=== PATIENT | female | born 1995 | race Caucasian/White ===

== ENCOUNTER 2018-01-26 10:25 | Emergency (ER) | payer BC, SELFPAY ==
[2018-01-26 10:39] VITALS: BP 117/82; PULSE 86; RESP 18; TEMP 36.8; O2SAT 99; BMI 32.5
--- NOTE | 2018-01-26 10:46 | HMH.EDUTC ---
[facility] – [place] Disposition Clinical Impression: Allergic urticaria Disposition: Home, Self-Care Condition on Discharge: Good Instructions: DI for Hives, Hives, Urticaria (Alternative Therapy) Additional Instructions: Take Benadryl over the counter for itching Follow up with Dermatology tomorrow as advised If rash worsens or began to have swelling in the mouth or tongue straight to ER Follow up with family doctor if needed REturn if needed Follow up with family doctor in 24-48 hours if no improvement or worsening fo symptoms Prescriptions: predniSONE [Prednisone 5mg Tab Dose-Pack] 5 mg PO UD DOSE PK #21 pack Referrals: Provider,Referral, [Primary Care Provider] - Gurmeet Carranza [Other] Forms: Work/School Release Time of Disposition: 11:00 Medical Decision Making - Medical Records Medical records reviewed: Yes: I reviewed the patient's medical records. - Osmany Inquiry Pt receiving controlled substance: No Osmany was queried for this patient: No Vital Signs: 01/26/18 10:39 Temperature 98.2 F Temperature Source Oral Pulse Rate [Right Radial] 86 Respiratory Rate 18 Blood Pressure [Right Arm] 117/82 Blood Pressure Mean [Right Arm] 93 02 Sat by Pulse Oximetry 99 Oxygen Delivery Method Room Air [facility] [place] HPI - General Stated complaint: rash on face Time Seen by Provider: 01/26/18 10:46 Mode of Arrival: Family Vehicle Source of Information: Patient Limitations: No Limitations Description of Symptoms (Recalled from Triage Doc. by RN): pt c/o rash on face with swelling,itching,buring. pt states she has taken bendryl and it is not helping . HEENT Symptoms (Recalled from RN notes): No Resp Symptoms (Recalled from RN notes): No Skin Symptoms (Recalled from RN notes): Yes (rash on face) MS Symptoms (Recalled from RN notes): No Functional Status (Recalled from RN notes): na - History of Present Illness Provider Complaint: Patient state that she noticed last night that she was having a rash on her face. State that rash is around her eyes, on her nose, forehead and ears State that it started last night and it was itchy and when she scratched it it would burn State that she took a benadryl but it didn't help and this morning she woke up and noticed that it was starting on her neck too States that she hasnt changed anything but did wear sunglasses yesterday and the rash appears to follow where the sunglasses was - Related Data Home Medications Medication Instructions Recorded Confirmed Norethindrone-E.estradiol-Iron 1 each PO DAILY 01/26/18 01/26/18 [Minastrin 24 Fe Chewable Tab] Previous Rx's Medication Instructions Recorded predniSONE [Prednisone 5mg Tab 5 mg PO UD DOSE PK #21 pack 01/26/18 Dose-Pack] Allergies Allergy/AdvReac Type Severity Reaction Status Date / Time No Known Allergies Allergy Verified 01/26/18 10:46 - Worker's Comp Is this a Worker's Comp case?: No [facility] History I have reviewed the patient's past medical history: Yes Medical History: Denies:: Cancer, Diabetes Mellitus Type 1, Diabetes Mellitus Type 2, MRSA Laterality Cases: Left: ACL Repair Amputation: No Fractures: No - Social History Smoking Status: Never smoker Alcohol Intake: never - Psychiatric History Expresses thoughts of harming self/others: None Suicide Plan Description: No Plan ROS Obtained: Yes All systems reviewed & no additional complaints - Allergic/Immunologic Allergic/Immunologic: Reports itchy eyes, Denies lip swelling, Denies throat swelling, Denies tongue swelling, Reports hives, Denies wheezing Physical Exam - General General appearance: alert, in no apparent distress - Eye Eye exam: Present: normal appearance, PERRL, EOMI - Respiratory Respiratory exam: Present: normal lung sounds bilaterally. Absent: respiratory distress - Cardiovascular Cardiovascular exam: Present: regular rate - Neurological Exam Neurological exam: Present: alert, oriented X3 - Skin Skin exam: P
--- NOTE | 2018-01-26 10:50 | ED_ITS ---
[facility] [place] Disposition Clinical Impression: Allergic urticaria Disposition: Home, Self-Care Condition on Discharge: Good Instructions: DI for Hives, Hives, Urticaria (Alternative Therapy) Additional Instructions: Take Benadryl over the counter for itching Follow up with Dermatology tomorrow as advised If rash worsens or began to have swelling in the mouth or tongue straight to ER Follow up with family doctor if needed REturn if needed Follow up with family doctor in 24-48 hours if no improvement or worsening fo symptoms Prescriptions: predniSONE [Prednisone 5mg Tab Dose-Pack] 5 mg PO UD DOSE PK #21 pack Referrals: Provider,Referral, [Primary Care Provider] - Gurmeet Carranza [Other] Forms: Work/School Release Time of Disposition: 11:00 Medical Decision Making - Medical Records Medical records reviewed: Yes: I reviewed the patient's medical records. - Osmany Inquiry Pt receiving controlled substance: No Osmany was queried for this patient: No Vital Signs: 01/26/18 10:39 Temperature 98.2 F Temperature Source Oral Pulse Rate [Right Radial] 86 Respiratory Rate 18 Blood Pressure [Right Arm] 117/82 Blood Pressure Mean [Right Arm] 93 02 Sat by Pulse Oximetry 99 Oxygen Delivery Method Room Air [facility] [place] HPI - General Stated complaint: rash on face Time Seen by Provider: 01/26/18 10:46 Mode of Arrival: Family Vehicle Source of Information: Patient Limitations: No Limitations Description of Symptoms (Recalled from Triage Doc. by RN): pt c/o rash on face with swelling,itching,buring. pt states she has taken bendryl and it is not helping . HEENT Symptoms (Recalled from RN notes): No Resp Symptoms (Recalled from RN notes): No Skin Symptoms (Recalled from RN notes): Yes (rash on face) MS Symptoms (Recalled from RN notes): No Functional Status (Recalled from RN notes): na - History of Present Illness Provider Complaint: Patient state that she noticed last night that she was having a rash on her face. State that rash is around her eyes, on her nose, forehead and ears State that it started last night and it was itchy and when she scratched it it would burn State that she took a benadryl but it didn't help and this morning she woke up and noticed that it was starting on her neck too States that she hasnt changed anything but did wear sunglasses yesterday and the rash appears to follow where the sunglasses was - Related Data Home Medications Medication Instructions Recorded Confirmed Norethindrone-E.estradiol-Iron 1 each PO DAILY 01/26/18 01/26/18 [Minastrin 24 Fe Chewable Tab] Previous Rx's Medication Instructions Recorded predniSONE [Prednisone 5mg Tab 5 mg PO UD DOSE PK #21 pack 01/26/18 Dose-Pack] Allergies Allergy/AdvReac Type Severity Reaction Status Date / Time No Known Allergies Allergy Verified 01/26/18 10:46 - Worker's Comp Is this a Worker's Comp case?: No [facility] History I have reviewed the patient's past medical history: Yes Medical History: Denies:: Cancer, Diabetes Mellitus Type 1, Diabetes Mellitus Type 2, MRSA Laterality Cases: Left: ACL Repair Amputation: No Fractures: No - Social History Smoking Status: Never smoker Alcohol Intake: never - Psychiatric History Expresses thoughts of harming self/others: None Suicide Plan Description: No Plan ROS Obtained: Yes All s
[2018-01-26 10:57] LABS: UTC Pregnancy Test, Urine Negative (Negative)
[2018-01-26 11:17] VITALS: BP 116/72; PULSE 86; RESP 18; TEMP 36.9; O2SAT 99
== END 2018-01-26 11:17 | disposition home or self-care (01) ==
PROVIDERS: Emergency Provider Nurse Practitioner
DX: L50.0 Allergic urticaria (principal)
CPT/HCPCS: 81025; 99201

== ENCOUNTER → 2018-03-04 20:09 | Outpatient (CLI) | payer BC, SELFPAY | PROVIDERS: PCP Nurse Practitioner; Visit Provider Nurse Practitioner | DX: R00.2 Palpitations (principal); R42 Dizziness and giddiness; R55 Syncope and collapse | CPT/HCPCS: 93225; 93226 ==

== ENCOUNTER → 2018-06-27 13:11 | Outpatient (CLI) | payer BC, SELFPAY ==
--- NOTE | 2018-06-27 13:17 | XR_ITS ---
XR chest 2V HISTORY: ITS.REASON: RALES ORDERING PHYSICIAN: Amina Bauer PATIENT AGE: 23 years Technique: PA and lateral chest. COMPARISON: No prior chest films FINDINGS: Lungs are well expanded and clear with no active disease. Markings upper normal right infrahilar region probably within normal limits. No focal pneumonia. Heart angelica and mediastinal structures satisfactory. The cardiomediastinal silhouette and pulmonary vascularity are within normal limits. The lungs are clear without infiltrates, suspicious nodules, or pleural effusions. No acute bony abnormalities. IMPRESSION:======= Nothing definitely acute. Lungs clear.
== END ==
PROVIDERS: PCP Family Medicine; Visit Provider Nurse Practitioner
DX: R09.89 Other specified symptoms and signs involving the circulatory and respiratory systems (principal)
CPT/HCPCS: 71046

== ENCOUNTER → 2018-07-25 15:14 | Outpatient (CLI) | payer BC, SELFPAY | PROVIDERS: PCP Nurse Practitioner; Visit Provider Nurse Practitioner | DX: R00.2 Palpitations (principal) | CPT/HCPCS: 93005 ==

== ENCOUNTER → 2018-11-26 12:37 | Outpatient (CLI) | payer BC, SELFPAY ==
--- NOTE | 2018-11-26 | CT_ITS ---
CT abdomen pelvis w con CLINICAL INDICATION: Left lower quadrant pain with nausea ITS.REASON: LEFT LOWER QUAD PAIN ORDERING PHYSICIAN: Colin Jacinto MD PATIENT AGE: 23 years COMPARISON: None TECHNIQUE: Axial images obtained with sagittal and coronal reformats. All CT scans at the facility use one or more dose reduction, viz: automated exposure control, ma/kV adjustment per patient size (including targeted exams where dose is matched to indication, i.e. head), or iterative reconstruction technique. PROCEDURE: Oral Contrast: Gastroview IV Contrast: 75 mL's of Isovue 370. FINDINGS: Lung bases are clear. The liver, gallbladder, spleen, adrenal glands, pancreas, and kidneys have an unremarkable appearance. No renal or ureteral calculi. No hydronephrosis. There is a small amount of fluid density at the tip of the cecum. What appear to represent part of the appendix has an unremarkable appearance. No intestinal obstruction or free air is evident. There is a 7.6 x 5.5 cm cystic left adnexal mass and may represent a large ovarian cyst. Small amount fluid is present in the cul-de-sac and in the left adnexal region. No acute bony anomalies. There is a tiny umbilical hernia containing fat IMPRESSION: 1. 7.6 x 5.5 cm cystic left adnexal lesion with ovarian cyst. Suggest pelvic ultrasound for further evaluation. Reticular small amount fluid in cul-de-sac and left adnexa. 3. A small amount fluid is present at the tip of the cecum which appears part of the appendix distally.
== END ==
PROVIDERS: PCP Family Medicine; Visit Provider Family Medicine
DX: R10.32 Left lower quadrant pain (principal)
CPT/HCPCS: 74177; Q9967

== ENCOUNTER → 2019-03-18 16:26 | Outpatient (CLI) | payer BC, SELFPAY | PROVIDERS: PCP Family Medicine; Visit Provider Nurse Practitioner | DX: R55 Syncope and collapse (principal); I47.1 Supraventricular tachycardia | CPT/HCPCS: 93270 ==

== ENCOUNTER → 2020-02-22 14:55 | Outpatient (CLI) | payer BC, SELFPAY ==
--- NOTE | 2020-02-22 15:06 | CA_ITS ---
APPROVED REPORT Left Lower Extremity Venous Study for DVT. Food And Beverage Lead: Diana Fowler RVT Indications Lower Extremity Pain: Lower Extremity Edema: Left POST LT KNEE PAIN, EDEMA Vein Imaging CFV (L): compressive, spontaneous, phasic, augmentation FEM (L): compressive, spontaneous, phasic, augmentation POP (L): compressive, spontaneous, phasic, augmentation PTV (L): Compressible GSV (L): Compressible Peroneals (L):Compressible GAS (L): Compressible Findings Study suggests no evidence of DVT in the left lower extremity. Study suggests no evidence of SVT in the left lower extremity. Conclusion No evidence of DVT or superficial thrombophlebitis in the veins scanned of the left lower extremity. Critical Notification Physician Notified Date: 02/22/2020 Time: 15:32 Physician Name: Dee Dee Bauer Electronically signed by : Buzz Sung MD 02/23/2020 16:02:23
== END ==
PROVIDERS: PCP Nurse Practitioner; Visit Provider Nurse Practitioner
DX: M25.562 Pain in left knee (principal)
CPT/HCPCS: 93971

== ENCOUNTER → 2021-02-15 15:57 | Outpatient (CLI) | payer BC, SELFPAY ==
--- NOTE | 2021-02-15 | CA_ITS ---
APPROVED REPORT Left Lower Extremity Venous Study for DVT. Contract Administration Manager: RADHA Indications Lower Extremity Pain: Left Patient denies trauma. States her left leg popliteal fossa has a knot and pain since 02/11/21. Vein Imaging CFV (L): compressive, spontaneous, phasic, augmentation FEM (L): compressive, spontaneous, phasic, augmentation POP (L): compressive, spontaneous, phasic, augmentation PTV (L): Compressible GSV (L): compressive, spontaneous, phasic, augmentation SSV (L): Compressible Peroneals (L):Compressible GAS (L): Compressible Findings No evidence of DVT or superficial thrombophlebitis in the veins scanned of the left lower extremity. Conclusion No evidence of DVT or superficial thrombophlebitis in the veins scanned of the left lower extremity. Electronically signed by : Buzz Sung MD 02/15/2021 16:35:43
== END ==
PROVIDERS: PCP Nurse Practitioner; Visit Provider Nurse Practitioner
DX: M25.562 Pain in left knee (principal)
CPT/HCPCS: 93971

== ENCOUNTER 2021-02-25 16:50 | Emergency (ER) | payer BC, SELFPAY ==
[2021-02-25 17:10] VITALS: BP 139/91; PULSE 81; RESP 19; TEMP 36.8; O2SAT 98; BMI 32.3
--- NOTE | 2021-02-25 17:53 | HMH.EDUTC ---
[facility] [place] Disposition Clinical Impression: Low back strain Qualifiers: Encounter type: initial encounter Qualified Code(s): S39.012A - Strain of muscle, fascia and tendon of lower back, initial encounter Disposition: Home, Self-Care Condition on Discharge: Good Instructions: Low Back Pain (Alternative Therapy), Cyclobenzaprine, Methylprednisolone Additional Instructions: *Etodolac adan 8 hours with meal as needed for pain/inflammation *Not additional anti-inflammatory like Ibuprofen motrin, aleve, advil with the above amount of Etodolac. You can still take Tylenol every 4 hours as needed if you need something else for pain *Ice 20 minutes every 2 hours for the first 48 hours after the initial injury followed by moist heat every 20 minutes 3-4 times a day to affected area *Muscle relaxer every 8 hours as needed for muscle spasms but remember, it WILL cause drowsiness You cannot take it and drive, operate machinery or care for small children. *Keep this area active, no movement leads to more stiffness, However take it easy and avoid heavy lifting pushing or pulling *Follow up with you family doctor if no improvement for further treatment on Saturday Return if needed Straight to ER if any life threatening symptoms Prescriptions: Etodolac [Etodolac 200mg Cap*] 200 mg PO Q8H PRN #15 cap PRN Reason: Moderate Pain Transmission Status: Received by [facility][id number] Cyclobenzaprine HCl [Flexeril 10mg tablet] 10 mg PO TID PRN #15 tab PRN Reason: Muscle Spasm Transmission Status: Received by [id number] methylPREDNISolone [Medrol 4mg tab] 4 mg PO DIRECTED #21 tab Transmission Status: Received by [facility][id number] Referrals: Amina Bauer APRN [Primary Care Provider] - As needed Time of Disposition: 18:11 Medical Decision Making - Osmany Inquiry Pt receiving controlled substance: No Osmany was queried for this patient: No Vital Signs: 02/25/21 17:10 02/25/21 18:12 Temperature 98.2 F 98.2 F Temperature Source Oral Pulse Rate 81 Pulse Rate [Right Brachial] 81 Respiratory Rate 19 19 Blood Pressure 139/91 H Blood Pressure [Right Arm] 139/91 H Blood Pressure Mean [Right Arm] 107 Blood Pressure Source [Right Arm] Automatic Cuff Blood Pressure Position [Right Arm] Sitting 02 Sat by Pulse Oximetry 98 Oxygen Delivery Method Room Air - Lab Data Lab results reviewed: Yes: I reviewed the patient's lab results. 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 by RN): PATIENT C/O LOW BACK PAIN THAT RADIATES DOWN LEG THAT STARTED THIS MORNING HEENT Symptoms (Recalled from RN notes): No Resp Symptoms (Recalled from RN notes): No Skin Symptoms (Recalled from RN notes): No MS Symptoms (Recalled from RN notes): Yes Functional Status (Recalled from RN notes): WNL - History of Present Illness Provider Complaint: Patient states that she was raising up from lying position earlier today when she felt something pull in her lower back area State that ever since she has been having muscle spasm like p
[2021-02-25 17:59] LABS: Apearance,Urine Clear (Clear); Bilirubin,Urine Negative (Negative); Blood, Urine 1+ (Negative); Color,Urine Yellow (Yellow); Glucose,Urine (UA) Negative (Negative); Ketones,Urine Negative (Negative); Protein,Urine Negative (Negative); UTC Leukocyte Esterase,Urine Negative (Negative); UTC Nitrate,Urine Negative (Negative); UTC Pregnancy Test, Urine Negative (Negative); Urobilinogen,Urine 0.2 EU/dl (0.2)
[2021-02-25 18:12] VITALS: BP 139/91; PULSE 81; RESP 19; TEMP 36.8; O2SAT 98
== END 2021-02-25 18:30 | disposition home or self-care (01) ==
PROVIDERS: Emergency Provider Nurse Practitioner; PCP Nurse Practitioner
DX: S39.012A Strain of muscle, fascia and tendon of lower back, initial encounter (principal); R03.0 Elevated blood-pressure reading, without diagnosis of hypertension
CPT/HCPCS: 81003; 81025; 99202; G0463

== ENCOUNTER → 2021-07-07 15:04 | Outpatient (CLI) | payer BC, SELFPAY ==
[2021-07-07 15:58] LABS: Basophils % 0.5 % (0.1-2.0); Eosinophils % 0.8 % (0.1-12.0); Hematocrit 39.2 % (37.0-47.0); Hemoglobin 12.9 g/dL (12.2-16.2); Lymphocytes # 0.9 K/mm3 (0.7-4.5); Lymphocytes % 26.8 % (10-50); Mean Corpuscular HGB Conc 32.9 g/dL (31.8-35.4); Mean Corpuscular Volume 94.3 fl (81-99); Mean Platelet Volume 8.1 fl (7.4-10.4); Monocytes # 0.4 K/mm3 (0.1-1.0); Neutrophils # 2.1 K/mm3 (1.8-7.8); Neutrophils % 59.9 % (37.0-80.0); Platelet Count 231 K/mm3 (142-424); Red Blood Count 4.16 M/mm3 (4.20-5.40); Red Cell Distribution Width 12.7 % (11.5-17.5); White Blood Count 3.4 K/mm3 (4.8-10.8)
== END ==
PROVIDERS: PCP Nurse Practitioner; Visit Provider Nurse Practitioner
DX: Z11.52 Encounter for screening for COVID-19 (principal); U07.1 COVID-19; J06.9 Acute upper respiratory infection, unspecified
CPT/HCPCS: 36415; 85025; C9803; U0003; U0005

== ENCOUNTER → 2021-07-12 13:45 | Outpatient (CLI) | payer BC, SELFPAY ==
--- NOTE | 2021-07-12 13:49 | XR_ITS ---
PROCEDURE: XR CHEST PORTABLE CLINICAL HISTORY: COVID OUTPATIENT COMPARISON: CR CXR2V XR chest 2V from 06/27/2018 CR CXR2V XR chest 2V from 10/03/2018 FINDINGS: The cardiomediastinal silhouette and pulmonary vascularity are within normal limits. Vague patchy density noted in the right lung base along the hemidiaphragm and could be due to an area of patchy infiltrate. The remaining lungs are clear. No acute bony abnormalities. IMPRESSION: Possible patchy infiltrate in the right lung base Dictated by: Buzz Sung MD 07/12/2021 14:08 Buzz Sung MD in [place] 07/12/2021 14:08
[2021-07-12 14:38] LABS: Basophils % 0.3 % (0.1-2.0); Eosinophils # 0.1 K/mm3 (0.0-0.4); Eosinophils % 1.2 % (0.1-12.0); Hematocrit 37.6 % (37.0-47.0); Hemoglobin 12.2 g/dL (12.2-16.2); Lymphocytes # 1.3 K/mm3 (0.7-4.5); Lymphocytes % 27.7 % (10-50); Mean Corpuscular HGB Conc 32.5 g/dL (31.8-35.4); Mean Corpuscular Hemoglobin 30.3 pg (27.0-31.2); Mean Corpuscular Volume 93.3 fl (81-99); Mean Platelet Volume 7.4 fl (7.4-10.4); Monocytes # 0.3 K/mm3 (0.1-1.0); Neutrophils % 63.9 % (37.0-80.0); Platelet Count 222 K/mm3 (142-424); Red Blood Count 4.03 M/mm3 (4.20-5.40); Red Cell Distribution Width 12.1 % (11.5-17.5); White Blood Count 4.7 K/mm3 (4.8-10.8)
== END ==
PROVIDERS: PCP Nurse Practitioner; Visit Provider Nurse Practitioner
DX: R06.02 Shortness of breath (principal); R06.2 Wheezing
CPT/HCPCS: 36415; 71045; 85025

== ENCOUNTER → 2021-08-04 11:31 | Outpatient (CLI) | payer BC, SELFPAY ==
--- NOTE | 2021-08-04 11:36 | XR_ITS ---
PROCEDURE: XR CHEST 2V CLINICAL HISTORY: SOBOE COMPARISON: CR CXR2V XR chest 2V from 06/27/2018 CR CXR2V XR chest 2V from 10/03/2018 CR XR CHEST PORTABLE from 07/12/2021 FINDINGS: The cardiomediastinal silhouette and pulmonary vascularity are within normal limits. There has been interval almost complete clearing of the ill-defined right lower lobe pneumonic infiltrate seen on the previous study 07/12/2021. The right upper lung field and left lung membreno are clear. There is no pleural fluid. IMPRESSION: Minimal residual infiltrate right lower lobe versus atelectasis otherwise negative chest Dictated by: Dr. Jessee Valdivia MD 08/04/2021 11:55 Dr. Jessee Valdivia MD in [place] 08/04/2021 11:55
== END ==
PROVIDERS: PCP Nurse Practitioner; Visit Provider Nurse Practitioner
DX: R06.02 Shortness of breath (principal)
CPT/HCPCS: 71046

== ENCOUNTER → 2022-05-16 06:48 | Outpatient (CLI) | payer BC, SELFPAY | PROVIDERS: PCP Nurse Practitioner; Visit Provider Nurse Practitioner | DX: R30.0 Dysuria (principal) | CPT/HCPCS: 87086 ==

== ENCOUNTER 2022-09-30 11:59 | Emergency (ER) | payer BC, SELFPAY ==
--- NOTE | 2022-09-30 12:15 | EXP.UTC ---
Discharge Plan Disposition Patient Disposition: Home, Self-Care Condition: Good Prescriptions Prescriptions: New oseltamivir [Tamiflu] 75 mg capsule 75 mg PO BID Qty: 10 0RF No Action cefdinir 300 mg capsule 300 mg PO BID Qty: 14 0RF metformin 750 MG tablet extended release 24 hr 750 mg PO DAILY Referrals Follow up/Referrals: Clark Melo MD [Primary Care Provider] - See instructions Activity Restrictions/Add. Instructions Additional Instructions/Restrictions: Drink plenty of fluids. Take tylenol or ibuprofen for pain or fever. Take the medications as directed. Follow up with your regular doctor. GO TO THE ER FOR ANY WORSENING SYMPTOMS Let your production expert know that you have influenza A. Clinical Impressions Clinical Impression: Influenza A, Stand Alone Forms Stand Alone Forms: Work/School Release Instructions Patient Instructions: DI for Influenza -- Adult, Oseltamivir Discharge ED Provider: Sebastian Villegas [facility] General Stated complaint: aches cough headache Time Seen by Provider: 09/30/22 12:15 History of Present Illness Provider Complaint: She states that for the past 2 days she has had a fever, chills, body aches, and a cough. She is currently . 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 Related Data Home Medications Medication Instructions Recorded Confirmed metformin 750 mg tablet,extended 750 mg PO DAILY PCOS 02/25/21 05/15/22 release 24 hr Previous Rx's Medication Instructions Recorded cefdinir 300 mg capsule 300 mg PO BID #14 caps 05/17/22 oseltamivir 75 mg capsule (Tamiflu) 75 mg PO BID #10 caps 09/30/22 Allergies Allergy/AdvReac Type Severity Reaction Status Date / Time vancomycin Allergy Verified 09/30/22 12:27 [facility] Disclaimer: The information contained in this section may have been updated after the patient was seen, as this information can be updated by other users. Social History Smoking Status: Never smoker alcohol intake: never substance use type: denies use current occupational status: other Travel in the last 8 weeks: None household members: family housing: house ROS Obtained: Yes All systems reviewed & no additional complaints except as documented Constitutional Constitutional: Reports chills and Reports fever(s) Eyes Eyes: Denies eye discharge ENT Ears, Nose, Mouth, and Throat: Reports as per HPI Cardiovascular Cardiovascular: Denies chest pain Respiratory Respiratory: Denies chest congestion and Reports cough Gastrointestinal Gastrointestingal: Reports nausea; Denies abdominal pain, constipation, cramping, diarrhea or vomiting Musculoskeletal Musculoskeletal: Denies arthralgias Integumentary/Breasts Skin/Breast: Denies rash Neurologic Neurologic: Denies paresthesias Physical Exam General General appearance: alert and in no apparent distress Head Head exam: atraumatic, normocephalic and normal inspection Eye Eye exam: Present normal appearance, PERRL and EOMI ENT ENT exam: Present mucous membranes moist and normal external ear exam Expanded ENT Exam TM/Canal exam: Bilateral TM: erythema and bulging Nose exam: Absent sinus tenderness Mouth exam: Present normal external inspection; Absent drooling Teeth exam: Present normal inspection Throat exam: Present tonsillar erythema, tonsillomegaly and tonsillar exudate Neck Neck exam: Present normal inspection, full ROM and trachea midline; Absent tenderness, meningismus or lymphadenopathy Chest Chest inspection: Present normal inspection and symmetric chest wall rise; Absent tenderness Respiratory Respiratory exam: Present normal lung sounds bilaterally; Absent respiratory distress, wheezes or stridor Cardiovascular Cardiovascular exam: Present regular rate and normal rhythm; Absent systolic murmur or diastolic murmur Abdominal Exam Abdominal exam: Present soft and normal bowel
[2022-09-30 12:24] VITALS: BP 114/61; PULSE 99; RESP 16; TEMP 36.6; O2SAT 99; BMI 33.9
[2022-09-30 12:40] LABS: UTC Influenza A Antigen Positive (Negative); UTC Influenza B Antigen Negative (Negative); UTC Strep Screen (Rapid) Negative (Negative)
[2022-09-30 13:31] VITALS: BP 114/61; PULSE 99; RESP 16; TEMP 36.6
== END 2022-09-30 13:36 | disposition home or self-care (01) ==
PROVIDERS: Emergency Provider Nurse Practitioner Family; PCP Family Medicine
DX: O26.899 Other specified pregnancy related conditions, unspecified trimester (principal); J10.1 Influenza due to other identified influenza virus with other respiratory manifestations
CPT/HCPCS: 87804; 87880; 99212; G0463

== ENCOUNTER → 2023-01-02 23:00 | Outpatient (CLI) | payer BC, SELFPAY ==
[2023-01-02 18:29] LABS: Basophils # 0.1 K/mm3 (0-0.2); Basophils % 1.3 % (0.1-2.0); Eosinophils # 0.1 K/mm3 (0.0-0.4); Hematocrit 36.8 % (37.0-47.0); Hemoglobin 11.5 g/dL (12.2-16.2); Lymphocytes # 1.2 K/mm3 (0.7-4.5); Lymphocytes % 30.7 % (10-50); Mean Corpuscular HGB Conc 31.2 g/dL (31.8-35.4); Mean Corpuscular Hemoglobin 25.6 pg (27.0-31.2); Mean Corpuscular Volume 82.2 fl (81-99); Mean Platelet Volume 8.1 fl (7.4-10.4); Monocytes # 0.3 K/mm3 (0.1-1.0); Monocytes % 7.1 % (1.7-9.3); Neutrophils # 2.3 K/mm3 (1.8-7.8); Platelet Count 420 K/mm3 (142-424); Red Blood Count 4.48 M/mm3 (4.20-5.40); White Blood Count 3.9 K/mm3 (4.8-10.8)
== END ==
PROVIDERS: PCP Nurse Practitioner; Visit Provider Nurse Practitioner
DX: D64.9 Anemia, unspecified (principal)
CPT/HCPCS: 85025

== ENCOUNTER → 2023-01-18 19:00 | Outpatient (CLI) | payer BC, SELFPAY | PROVIDERS: PCP Nurse Practitioner; Visit Provider Nurse Practitioner | DX: N30.01 Acute cystitis with hematuria (principal) | CPT/HCPCS: 87086 ==

== ENCOUNTER → 2023-02-25 23:24 | Outpatient (CLI) | payer BC, SELFPAY ==
[2023-02-25 19:22] LABS: Basophils % 0.5 % (0.1-2.0); Eosinophils # 0.3 K/mm3 (0.0-0.4); Eosinophils % 4.2 % (0.1-12.0); Hematocrit 40.2 % (37.0-47.0); Hemoglobin 12.5 g/dL (12.2-16.2); Lymphocytes # 1.9 K/mm3 (0.7-4.5); Lymphocytes % 30.5 % (10-50); Mean Corpuscular HGB Conc 31.1 g/dL (31.8-35.4); Mean Corpuscular Hemoglobin 25.5 pg (27.0-31.2); Mean Corpuscular Volume 82.1 fl (81-99); Mean Platelet Volume 8.3 fl (7.4-10.4); Monocytes # 0.3 K/mm3 (0.1-1.0); Monocytes % 5.4 % (1.7-9.3); Neutrophils # 3.7 K/mm3 (1.8-7.8); Neutrophils % 59.4 % (37.0-80.0); Platelet Count 321 K/mm3 (142-424); Red Cell Distribution Width 17.2 % (11.5-17.5); White Blood Count 6.2 K/mm3 (4.8-10.8)
[2023-02-25 19:42] LABS: Chloride 99 mmol/L (98-107); Potassium 4.3 mmoL/L (3.5-5.1); Sodium 140 mmol/L (136-145)
[2023-02-25 19:45] LABS: Alanine Aminotransferase 24 U/L (12-78); Albumin Level 4.4 g/dl (3.5-5.0); Albumin/Globulin Ratio 1.5 (1.1-1.8); Alkaline Phosphatase 120 U/L (38-126); Anion Gap 21.3 mEq/L (5-15); Aspartate Amino Transferase 26 U/L (14-36); Bilirubin,Total 0.6 mg/dl (0.2-1.3); Blood Urea Nitrogen 19 mg/dl (7-17); Calcium 9.3 mg/dl (8.4-10.2); Carbon Dioxide 24 mmol/L (22.0-30.0); Estimated Glomerular Filt Rate 85 ml/min (>60); GFR (African American) 103 ML/MIN (>60); Globulin 2.9 g/dL (1.3-3.2); Glucose 96 mg/dl (74-100); Total Protein,Serum 7.3 g/dl (6.3-8.2)
[2023-02-25 20:01] LABS: 25-OH Vitamin D, Total 35.2 ng/mL (30-100)
[2023-02-25 20:15] LABS: Thyroid Stimulating Hormone 0.91 uIU/mL (0.465-4.68)
[2023-02-25 20:34] LABS: Vitamin B12 494 pg/mL (239-931)
== END ==
PROVIDERS: PCP Nurse Practitioner; Visit Provider Nurse Practitioner
DX: G43.109 Migraine with aura, not intractable, without status migrainosus (principal); E66.9 Obesity, unspecified; Z68.33 Body mass index [BMI] 33.0-33.9, adult; Z79.899 Other long term (current) drug therapy
CPT/HCPCS: 80053; 82306; 82607; 83036; 84443; 85025

== ENCOUNTER 2023-03-03 17:28 | Emergency (ER) | payer BC, SELFPAY ==
[2023-03-03 19:22] VITALS: PULSE 82; RESP 18; TEMP 36.9; O2SAT 98; BMI 32.3
[2023-03-03 19:33] LABS: UTC Strep Screen (Rapid) Positive (Negative)
--- NOTE | 2023-03-03 19:40 | EXP.UTC ---
Discharge Plan Disposition Patient Disposition: Home, Self-Care Condition: Good Prescriptions Prescriptions: New amoxicillin [amoxicillin] 500 mg tablet 500 mg PO BID 10 Days Qty: 20 0RF No Action norethindrone (contraceptive) 0.35 mg tablet 0.35 mg PO DAILY Label Comments: TAKE 1 TABLET BY MOUTH DAILY. Referrals Follow up/Referrals: Amina Bauer APRN [Primary Care Provider] - See instructions Activity Restrictions/Add. Instructions Additional Instructions/Restrictions: Start antibiotics today be sure to take it as ordered with the full length of time although you should start feeling better in 24-48 hours. Change toothbrush and toothpaste 24-48 hours after starting antibiotics Tylenol or Motrin as needed for fever or pain Encourage fluids, water, Gatorade, Powerade, try cold fluids, popsicles, ice cream will make it feel better You are contagious for 24 hours. Avoid kissing anyone, no eating or drinking after anyone. You are contagious. Follow-up the ER for new or worsening symptoms or no noticeable improvement over the next 24-48 hours. Follow-up with PCP this week. Clinical Impressions Clinical Impression: Strep sore throat Instructions Patient Instructions: DI for Strep Throat Discharge ED Provider: Nafisa ([facility])Wilfrido [facility] HPI General Stated complaint: sore throat,headache,stiff neck Mode of Arrival: Ambulatory Source of Information: Patient Limitations: No Limitations Time Seen by Provider: 03/03/23 19:41 Description of Symptoms (Recalled from Triage Doc. by RN): pt c/o a sore throat and HARVEY x2d HEENT Symptoms (Recalled from RN notes): Yes Resp Symptoms (Recalled from RN notes): No Skin Symptoms (Recalled from RN notes): No MS Symptoms (Recalled from RN notes): No Functional Status (Recalled from RN notes): wnl History of Present Illness Provider Complaint: 27yr old female presents for sore throat and harvey for 2 days Related Data Home Medications Medication Instructions Recorded Confirmed norethindrone (contraceptive) 0.35 0.35 mg PO DAILY 02/25/23 02/25/23 mg tablet Previous Rx's Medication Instructions Recorded amoxicillin 500 mg tablet 500 mg PO BID 10 days #20 tabs 03/03/23 Allergies Allergy/AdvReac Type Severity Reaction Status Date / Time vancomycin Allergy Verified 05/07/23 19:26 Worker's Comp Is this a Worker's Comp case?: No [facility] Disclaimer: The information contained in this section may have been updated after the patient was seen, as this information can be updated by other users. Medical History , [employer]) Migraine with aura Surgical History , [employer]IVER) S/P section Social History , [employer]) Smoking Status: Never smoker alcohol intake: never substance use type: denies use current occupational status: other Travel in the last 8 weeks: None household members: family housing: house ROS Obtained: Yes All systems reviewed & no additional complaints except as documented Constitutional Constitutional: Reports system reviewed and no additional complaints, except as documented, Reports as per HPI and Reports headache(s) Eyes Eyes: Reports system reviewed and no additional complaints, except as documented ENT Ears, Nose, Mouth, and Throat: Reports system reviewed and no additional complaints, except as documented, Reports as per HPI, Reports headache(s) and Reports sore throat Cardiovascular Cardiovascular: Reports system reviewed and no additional complaints, except as documented Respiratory Respiratory: Reports system reviewed and no additional complaints, except as documented Gastrointestinal Gastrointestingal: Reports system reviewed and no additional complaints, except as documented Musculoskeletal Musculoskeletal: Reports system reviewed and no additional complain
[2023-03-03 20:12] VITALS: BP 0/0; PULSE 82; RESP 18; TEMP 36.9
== END 2023-03-03 20:12 | disposition home or self-care (01) ==
PROVIDERS: Emergency Provider Nurse Practitioner Family; PCP Nurse Practitioner
DX: J02.0 Streptococcal pharyngitis (principal); R51.9 Headache, unspecified
CPT/HCPCS: 87880; 99212; 99214; G0463

== ENCOUNTER → 2023-03-06 08:29 | Outpatient (CLI) | payer BC, SELFPAY ==
--- NOTE | 2023-03-06 08:36 | MR_ITS ---
FINAL REPORT TECHNIQUE: 3-D [id number] sequences without contrast CLINICAL HISTORY: Migraines FINDINGS: The distal internal carotid arteries are unremarkable. MCAs and ACAs are unremarkable. Basilar artery is widely patent. hospital clinic assistant are intact. No aneurysm is seen. IMPRESSION: Unremarkable MRA head Reviewed, Interpreted and Dictated by Perfecto Valladares MD Transcribed by Liz Easno Authenticated and [facility]
--- NOTE | 2023-03-06 08:59 | MR_ITS ---
FINAL REPORT TECHNIQUE: Multiplanar MR without contrast CLINICAL HISTORY: MIGRAINES FINDINGS: Diffusion sequences show no signal abnormality to indicate acute infarct. No mass, hemorrhage or edema is seen. Ventricles are normal. Major vascular flow voids are intact. IMPRESSION: Unremarkable MR of the brain without contrast Reviewed, Interpreted and Dictated by Perfecto Valladares MD Transcribed by Liz Eason Authenticated and [facility]
== END ==
PROVIDERS: PCP Nurse Practitioner; Visit Provider Nurse Practitioner
DX: G43.109 Migraine with aura, not intractable, without status migrainosus (principal)
CPT/HCPCS: 70544; 70551

== ENCOUNTER 2023-07-21 12:52 | Emergency (ER) | payer BC, SELFPAY ==
[2023-07-21 13:10] VITALS: BP 107/66; PULSE 76; RESP 18; TEMP 36.9; O2SAT 96; BMI 32.3
[2023-07-21 13:28] LABS: UTC Strep Screen (Rapid) Negative (Negative)
--- NOTE | 2023-07-21 14:08 | EXP.UTC ---
Discharge Plan Disposition Patient Disposition: Home, Self-Care Condition: Good Prescriptions Prescriptions: No Action norethindrone (contraceptive) 0.35 mg tablet 0.35 mg PO DAILY Patient Comments: TAKE 1 TABLET BY MOUTH DAILY. metformin 1,000 mg tablet extended release 24hr 1,500 mg PO DAILY Referrals Follow up/Referrals: Amina Bauer APRN [Primary Care Provider] - See instructions Clinical Impressions Clinical Impression: Pharyngitis Qualifiers: Pharyngitis/tonsillitis etiology: unspecified etiology Qualified Code(s): J02.9 - Acute pharyngitis, unspecified Instructions Patient Instructions: DI for Pharyngitis/Tonsillopharyngitis -- Adult Discharge ED Provider: Elisa Maria [facility] General Stated complaint: suspected strep Mode of Arrival: Ambulatory Source of Information: Patient Limitations: No Limitations Time Seen by Provider: 07/21/23 13:56 Description of Symptoms (Recalled from Triage Doc. by RN): sore throat HEENT Symptoms (Recalled from RN notes): Yes Resp Symptoms (Recalled from RN notes): No Skin Symptoms (Recalled from RN notes): No MS Symptoms (Recalled from RN notes): No Functional Status (Recalled from RN notes): n/a History of Present Illness Provider Complaint: Pt states that she awoke with a sore throat and worries that she may have strep. 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 She has not taken anything for her symptoms. Related Data Home Medications Medication Instructions Recorded Confirmed norethindrone (contraceptive) 0.35 0.35 mg PO DAILY b/c 02/25/23 07/21/23 mg tablet metformin 1,000 mg tablet,extended 1,500 mg PO DAILY . 05/09/23 07/21/23 release 24hr Allergies Allergy/AdvReac Type Severity Reaction Status Date / Time vancomycin Allergy Verified 07/21/23 13:20 Worker's Comp Is this a Worker's Comp case?: No [facility] Disclaimer: The information contained in this section may have been updated after the patient was seen, as this information can be updated by other users. Medical History Migraine with aura Surgical History S/P section Social History Smoking Status: Never smoker alcohol intake: never substance use type: denies use current occupational status: other Travel in the last 8 weeks: None household members: family housing: house ROS Obtained: Yes All systems reviewed & no additional complaints except as documented Constitutional Constitutional: Reports system reviewed and no additional complaints, except as documented and Reports malaise Eyes Eyes: Reports system reviewed and no additional complaints, except as documented ENT Ears, Nose, Mouth, and Throat: Reports system reviewed and no additional complaints, except as documented, Reports nasal discharge, Reports odynophagia, Reports post nasal drip and Reports sore throat Cardiovascular Cardiovascular: Reports system reviewed and no additional complaints, except as documented Respiratory Respiratory: Reports system reviewed and no additional complaints, except as documented Gastrointestinal Gastrointestingal: Reports system reviewed and no additional complaints, except as documented and odynophagia Genitourinary Female Genitourinary: Reports system reviewed and no additional complaints, except as documented Musculoskeletal Musculoskeletal: Reports system reviewed and no additional complaints, except as documented Integumentary/Breasts Skin/Breast: Reports system reviewed and no additional complaints, except as documented Neurologic Neurologic: Reports system reviewed and no additional complaints, except as documented Endocrine Endocrine: Reports system reviewed and no additional complaints, except as documented Hematologic/Lymphatic Henatologic/Lymphatic: Reports sys
[2023-07-21 14:15] VITALS: BP 107/66; PULSE 76; RESP 18; TEMP 36.9; O2SAT 96
== END 2023-07-21 14:15 | disposition home or self-care (01) ==
PROVIDERS: Emergency Provider Nurse Practitioner Family; PCP Nurse Practitioner
DX: J02.9 Acute pharyngitis, unspecified (principal)
CPT/HCPCS: 87880; 99212; 99213; G0463

== ENCOUNTER → 2023-09-26 16:50 | Outpatient (CLI) | payer BC, SELFPAY ==
[2023-09-26 17:21] LABS: Basophils % 0.2 % (0.1-2.0); Eosinophils # 0.1 K/mm3 (0.0-0.4); Hematocrit 40.4 % (37.0-47.0); Hemoglobin 13.2 g/dL (12.2-16.2); Lymphocytes # 1.5 K/mm3 (0.7-4.5); Mean Corpuscular HGB Conc 32.7 g/dL (31.8-35.4); Mean Corpuscular Hemoglobin 29.5 pg (27.0-31.2); Mean Corpuscular Volume 90.4 fl (81-99); Mean Platelet Volume 8.1 fl (7.4-10.4); Monocytes # 0.4 K/mm3 (0.1-1.0); Monocytes % 3.5 % (1.7-9.3); Neutrophils % 81.2 % (37.0-80.0); Platelet Count 292 K/mm3 (142-424); Red Blood Count 4.47 M/mm3 (4.20-5.40); Red Cell Distribution Width 13.5 % (11.5-17.5); White Blood Count 11.1 K/mm3 (4.8-10.8)
[2023-09-26 18:43] LABS: HCG,Quantitative 107890 mIU/ml (0-5.42)
[2023-09-28 09:12] LABS: HIV Screen 4th Generation wRfx Non Reactive (Non Reactive); Rubella Antibodies, IgG <0.90 index (Immune >0.99)
[2023-09-28 10:11] LABS: Rapid Plasma Reagin Ab Titer Non Reactive titer (NonRea<1:1)
[2023-09-30 21:42] LABS: Hepatitis B Surface Antigen Negative; Hepatitis C Antibody Non Reactive; Progesterone 13.1
== END ==
PROVIDERS: PCP Nurse Practitioner; Visit Provider Obstetrics & Gynecology
DX: Z34.91 Encounter for supervision of normal pregnancy, unspecified, first trimester (principal); Z3A.08 8 weeks gestation of pregnancy
CPT/HCPCS: 36415; 84144; 84702; 85025; 86593; 86703; 86762; 86850; 87340; 87380; G0432

== ENCOUNTER 2024-05-12 11:05 | Outpatient (CLI) | payer BC, SELFPAY | END 2024-05-12 23:59 | disposition home or self-care (01) | LOC: LAB.DROPOF 05-13 11:05 | PROVIDERS: PCP Nurse Practitioner; Visit Provider Nurse Practitioner | DX: N39.0 Urinary tract infection, site not specified (principal) | CPT/HCPCS: 87086; 87088; 87186 ==

== ENCOUNTER 2024-07-20 12:09 | Outpatient (CLI) | payer BC, SELFPAY ==
--- NOTE | 2024-07-20 12:14 | XR_ITS ---
FINAL REPORT CLINICAL HISTORY: COVID, cough, bronchitis COMPARISON: 08/04/2021 FINDINGS: No acute pulmonary density is evident. There is no evidence of effusion or other pleural disease. The mediastinum has a normal appearance. The cardiac silhouette is unremarkable. IMPRESSION: Unremarkable chest exam. Reviewed, Interpreted and Dictated by Perfecto Valladares MD Transcribed by Zofia Valle Authenticated and [facility]
== END 2024-07-20 23:59 | disposition home or self-care (01) ==
LOC: RAD 12:10
PROVIDERS: PCP Nurse Practitioner; Visit Provider Nurse Practitioner
DX: U07.1 COVID-19 (principal); J06.9 Acute upper respiratory infection, unspecified; J40 Bronchitis, not specified as acute or chronic; R05.9 Cough, unspecified; R06.2 Wheezing
CPT/HCPCS: 71046